=== PATIENT | male | born 1930 | race Caucasian/White ===

== ENCOUNTER 2020-03-07 13:29 | Inpatient (IN) | payer OTHER ==
[2020-03-07] VITALS (11 sets, daily range): BP systolic 90–146; BP diastolic 46–74
[~2020-03-07] VITALS: Ht 167.6 cm; Wt 82.6 kg
[~2020-03-07 13:29] MED LIST: ACETAMINOPHEN325 M1 PO; ACETAMINOPHEN650 M5 PO; ADULT LOW DOSE81 MG PO; ALDACTONE25 MG PO; ASA81BEC PO; ASPIRIN EC81 M1 PO; ASPIRIN81 M2 PO; AUGMENTIN 875875 MG PO; BISAC-EVAC10 MG RECTAL; CENTRUM TABLET1 TAB PO; COLACE100 MG PO; CRESTOR10 MG PO; DELSYM COU30 MG/5 M1 PO; DELTASONE20 MG PO; DUONEB 2.5-0.5 M3 ML INH; ENOXAPARIN40 MG/0.1 SUBQ; EQL FISH OIL 11 EAC1 PO; FISH OIL 1,0001 EAC5 PO; FISH OIL 1,001000 M1 PO; FLOMAX0.4 MG PO; FOLIC ACID 1 MG1 MG PO; FOLIC ACID1 MG PO; GLUCOSAMINE S1000 M2 PO; GUAIFENESIN-CODE5 ML PO; HYDROCODON-ACE1 EAC7 PO; HYDROCODONE-AP1 EAC6 PO; KEFLEX500 MG PO; LEVAQUIN 500 M500 M2 PO; LOPERAMIDE 2 MG2 M1 PO; LOPRESSOR 50 MG50 M1 PO; METHOTREXATE 22.5 M1 PO; METHOTREXATE 22.5 MG PO; MINOCYCLINE 5050 M1 PO; MOBIC15 MG PO; MOM PO; MUCINEX DM ER1 EAC1 PO; MULTIVITAMINS PO; NORCO 5-325 TA1 EACH PO; OMEGA-31000 MG PO; PANTOPRAZOLE SO40 M1 PO; PANTOPRAZOLE SO40 MG; PANTOPRAZOLE SO40 MG PO; PERCOCET 5-3251 EACH PO; PLAVIX 75 MG TA75 MG PO; PREDNISONE 1 MG1 M1 PO; PREDNISONE PO; PROTONIX40 M2 PO; SOLU-MEDRO125 MG/24 IV PUSH; TAMSULOSIN HCL0.4 M1 PO; TAMSULOSIN HCL0.4 MG PO; TESSALON PERLE100 MG PO; TOPROL XL25 MG PO; TOPROL XL50 MG PO; VENTOLIN HFA 1818 GM INH; VITAMIN D-32000 UNIT PO; VITAMIN D1000 UNI1 PO; VITAMIN D31000 UNI2 PO; ZESTRIL10 MG PO; ZOSYN 3/0.373.375 G3 IV
[2020-03-07 14:24] LABS: ABSOLUTE NEUTROPHILS 5.5 thou/uL (1.4-8.2); BASOPHILS 0.1 % (0.0-2.0); EOSINOPHILS 0.3 % (0.0-3.0); HEMATOCRIT 39.1 % (42.0-52.0); LYMPHOCYTES 5.5 % (24.0-44.0); MCHC 33.2 g/dL (28.0-37.0); MCV 96.4 fL (80.0-100.0); MONOCYTES 4.1 % (1.0-8.0); PLATELET COUNT 187 thou/uL (150-400); RBC 4.05 mil/uL (4.50-6.00); RDW 17.5 % (10.5-14.5); WBC 6.1 thou/uL (4.0-11.0)
[2020-03-07 14:37] LABS: ANION GAP 9 mmol/L (7-16); BUN 18 mg/dL (7-18); CALCIUM 8.1 mg/dL (8.5-10.1); CHLORIDE 101 mmol/L (98-107); CO2 23 mmol/L (21-32); CREATININE 1.1 mg/dL (0.7-1.3); GLUCOSE 96 mg/dL (74-106); POTASSIUM 4.1 mmol/L (3.5-5.1); SODIUM 133 mmol/L (136-145)
[2020-03-07 14:46] LABS: ALBUMIN 2.5 g/dL (3.4-5.0); MAGNESIUM 1.7 mg/dL (1.8-2.4); SGOT 46 U/L (15-37); SGPT 30 U/L (30-65); TOTAL BILIRUBIN 1.4 mg/dL (0.2-1.0); TOTAL PROTEIN 5.9 g/dL (6.4-8.2); TROPONIN-I <0.06 ng/mL (<0.06)
[2020-03-07 14:51] LABS: BE(vivo) -4.1 mmol/L (-2 to +3); HCO3 18.3 mmol/L (22.0-26.0); PCO2 26.7 mmHg (35.0-45.0); PO2 72.4 mmHg (80.0-100.0); pH 7.454 (7.360-7.450); sO2 95.5 % (92.0-98.0)
[2020-03-07 15:09] LABS: APTT 25.5 Seconds (24.5-32.8); INR 1.2; PROTIME 12.4 Seconds (9.3-11.4)
[2020-03-07] MEDS ORDERED: PROAIR HFA8.5 GM INH (16:13)
[2020-03-07] MEDS ORDERED: FISH OIL 1,0001 EAC9 PO (16:15)
[2020-03-07] MEDS ORDERED: VITAMIN B-125000 MCG SUBLING (16:15)
[2020-03-07] MEDS ORDERED: PREDNISONE 5 MG5 M1 PO (16:16)
[2020-03-07] MEDS ORDERED: VITAMIN D3125 MC1 PO (16:16)
[2020-03-07] MEDS ORDERED: TOPROL XL25 MG PO (16:18)
[2020-03-07] MEDS ORDERED: CRESTOR20 MG PO (16:18)
[2020-03-07] MEDS ORDERED: FOLIC ACID1 MG PO (16:18)
[2020-03-07] MEDS ORDERED: MIRTAZAPINE7.5 MG PO (16:19)
[2020-03-07] MEDS ORDERED: ASA81BEC PO (16:19)
[2020-03-07] MEDS ORDERED: METHOTREXATE 22.5 M1 PO (16:20)
--- NOTE | 2020-03-07 17:58 | EKG ---
[facility] [place] [address] ELECTROCARDIOGRAM REPORT Name: CARO CHAHAL Room #: 238-P ADM IN M.R.#: [id number] Admission: 03/07/20 Attend Phys: Donnie Weston Discharge: Date of : [birth year] Report #: [id number] THIS REPORT FOR: cc: Margret Salazar MD,Margret Clement,Lance Araujo MD [facility] ~ THIS REPORT FOR: //name// [facility] ED Test Date: 2020-03-07 Test Time: 15:53:33 Pat Name: CARO CHAHAL Department: Room: 238 Gender: M Electronics Design Engineer: NO : 1930 Requested By: Kevin Buchanan Order Number: [id number] MD: Lance Clement Measurements Intervals [place] Rate: 111 P: 6 ND: 166 QRS: -59 QRSD: 119 T: 84 QT: 347 QTc: 472 Interpretive Statements Sinus tachycardia Right bundle branch block Anteroseptal infarct, age indeterminate Left anterior hemiblock Compared to ECG 10/10/2015 21:55:01 No significant change was found Electronically Signed On 03-07-2020 17:57:59 RN QUALITY by Lance Clement [email or web address] <ELECTRONICALLY SIGNED> By: Lance Clement MD, FACC 03/07/20 1757 1553 1553 Lance Clement MD, FAC /EPI
[2020-03-07 18:02] LABS: URINE BILIRUBIN NEGATIVE (Negative); URINE BLOOD TRACE (Negative); URINE CLARITY CLEAR; URINE COLOR YELLOW; URINE GLUCOSE-RANDOM* NEGATIVE (Negative); URINE KETONES NEGATIVE (Negative); URINE LEUKOCYTES-REFLEX NEGATIVE (Negative); URINE NITRITE-REFLEX NEGATIVE (Negative); URINE PROTEIN (DIPSTICK) NEGATIVE (Negative); URINE SPECIFIC GRAVITY <= 1.005 (1.005-1.035); URINE UROBILINOGEN 0.2 E.U./dl (0.2-1.0)
--- NOTE | 2020-03-07 18:32 | NUR ---
PATIENT ADMITTED TO ICU FROM E.D AT 1730, ON BIPAP, CONFUSED AND RESTLESS, IMPULSIVE AND TRIES TO TAKE OFF BIPAP. VITALS STABLE AND DENIES PAIN. REFUSES TO ANSWER SOME OF THE ADMISSION HISTORY QNS. ADMISSION ASSESSMENT DOCUMENTED.
--- NOTE | 2020-03-07 19:12 | NUR ---
PATIENT'S SON CALLED NURSE AND STATED THAT PATIENT'S OTHER SON LIVES WITH HIM AND HAD TESTED POSITIVE FOR COVID 19 2WKS AGO. STATED PATIENT IS [facility] ALSO. UPDATED ON PATIENT'S STATUS.
--- NOTE | 2020-03-07 20:21 | NUR ---
PT'S SON NANO (DPOA) CALLED FOR AN UPDATE. HE STATED THAT PT IS VERY HARD OF HEARING AND DOES NOT HAVE HIS HEARING AIDS AT THE MOMENT. UPDATE WAS GIVEN, COVID RESULT CAME BACK POSITIVE, NANO STATED PT WAS EXPOSED TO COVID 19 2 WEEKS AGO BUT HAD BEEN DOING OK SINCE THEN UNTIL TODAY.
--- NOTE | 2020-03-07 20:35 | NUR ---
PT'S COVID RESULT IS POSITIVE. CALLED DR BORDEN ON [phone] LEFT A MESSAGE.
--- NOTE | 2020-03-07 21:57 | NUR ---
DR BORDEN HERE TO SEE PT, SAID HE ENTER POM ORDERS.
[2020-03-08] VITALS (30 sets, daily range): BP systolic 94–127; BP diastolic 46–79
[2020-03-08 03:20] LABS: ABSOLUTE NEUTROPHILS 3.7 thou/uL (1.4-8.2); BASOPHILS 0.1 % (0.0-2.0); HEMATOCRIT 37.5 % (42.0-52.0); HEMOGLOBIN 12.3 gm/dL (14.0-18.0); LYMPHOCYTES 7.5 % (24.0-44.0); MCH 31.6 pg (26.0-34.0); MCHC 32.8 g/dL (28.0-37.0); MCV 96.4 fL (80.0-100.0); MONOCYTES 3.8 % (1.0-8.0); PLATELET COUNT 161 thou/uL (150-400); POLYS 88.6 % (36.0-66.0); RBC 3.88 mil/uL (4.50-6.00); WBC 4.1 thou/uL (4.0-11.0)
[2020-03-08 03:41] LABS: ALBUMIN 2.1 g/dL (3.4-5.0); CALCIUM 7.8 mg/dL (8.5-10.1); POTASSIUM 3.6 mmol/L (3.5-5.1); TOTAL BILIRUBIN 0.8 mg/dL (0.2-1.0)
[2020-03-08 07:30] LABS: FIBRINOGEN 414.1 mg/dL (210-360); INR 1.3; PROTIME 13.3 Seconds (9.3-11.4)
[2020-03-08 09:23] LABS: BE(vivo) 0 mmol/L (-2 to +3); HCO3 23.9 mmol/L (22.0-26.0); PCO2 36.5 mmHg (35.0-45.0); PO2 64.8 mmHg (80.0-100.0); pH 7.434 (7.360-7.450); sO2 93.4 % (92.0-98.0)
--- NOTE | 2020-03-08 14:13 | NUR ---
chart review. cm unable to visit with johnna rt resting, covid + and conserving on ppe. cm visited with son russell via phone call. education on transition of care and dcp. son reported lives with his dad. in house, have ramp and stair lifts inside the home. he has fww, 4ww that is not in good condition, wheel chair, shower chair, grab bars in bathroom. takes breathing tx at home. no home o2. he was able to dress, shower, and do own adl's. no longer drives. son manages his medication, cooks and does laundry in the basement. been to skilled rehab in past and had [facility] in past per son russell. will cont following as needed for dc needs.
--- NOTE | 2020-03-08 18:26 | NUR ---
SPOKE WITH BOTH FAMILY REPRESENTITIVES NANO AND POLLY ABOUT PATIENT STATUS. PATIENT ON 3LNC DURING THE DAY. CONTINUES NPO. AWAITING SPEECH EVALUATION FOR THE AM. CONVULUSCENT PLASMA AND REMDESIVIR GIVEN. PATIENT IMPROVING IN MENTATION STATUS. PIVS. ROQUE WITH ADEQUATE URINE OUTPUT. LASIX GIVEN.
--- NOTE | 2020-03-08 22:40 | NUR ---
>>1920 Bedside shift report received, care assumed. Pt is alert with confusion, denies pain. will continue to monitor. >>>2029 Assessments done as documented, pt is alert with confusion. Able to follow commands. Continues on at 3l NC. tolerating, 02 sats at 97%. Pt is [place], white board used for communication. >>>2039 pt exhibiting sinus bradycardia with HR on the 30s-40s occassionally. Tomi Dukes NP notified. order for an EK and consult with cardiology given. >>>2139 Cardiology consulted, call made to oncall service, left message for a call back.
[2020-03-09] VITALS (14 sets, daily range): BP systolic 98–135; BP diastolic 48–83
[2020-03-09 05:06] LABS: ALBUMIN 2.2 g/dL (3.4-5.0); MAGNESIUM 2.2 mg/dL (1.8-2.4); POTASSIUM 3.4 mmol/L (3.5-5.1); TOTAL BILIRUBIN 0.9 mg/dL (0.2-1.0); TOTAL PROTEIN 5.6 g/dL (6.4-8.2)
--- NOTE | 2020-03-09 07:23 | EKG ---
[facility] [place] [address] ELECTROCARDIOGRAM REPORT Name: CARO CHAHAL Room #: 238-P ADM IN M.R.#: [id number] Admission: 03/07/20 Attend Phys: Donnie Weston Discharge: Date of : [birth year] Report #: [id number] THIS REPORT FOR: cc: Margret Salazar MD,Margret Clement,Lance Araujo MD [facility] ~ THIS REPORT FOR: //name// [facility] Test Date: 2020-03-08 Test Time: 21:26:51 Pat Name: CARO CHAHAL Department: Room: 238 P Gender: M Manager Material: KUNAL Peoples RN : 1930 Requested By: Roseline Krishna Order Number: [id number] MD: Lance Clement Measurements Intervals [place] Rate: 40 P: 40 [place]: 169 QRS: -44 QRSD: 167 T: 27 QT: 573 QTc: 468 Interpretive Statements Sinus bradycardia Ventricular premature complex Nonspecific intraventricular conduction delay, leftward axis Nonspecific T wave abnormality Compared to ECG 03/07/2020 15:53:33 Ventricular premature complex(es) now present No significant change was found Electronically Signed On 03-09-2020 7:23:35 WEB SIZER by Lance Clement [email or web address] <ELECTRONICALLY SIGNED> By: Lance Clement MD, [facility] 03/09/20722 25 25 Lance Clement MD, [facility] /EPI
--- NOTE | 2020-03-09 07:59 | EKG ---
[facility] [place] [address] ELECTROCARDIOGRAM REPORT Name: CARO CHAHAL Room #: 238-P ADM IN M.R.#: [id number] Admission: 03/07/20 Attend Phys: Donnie Weston Discharge: Date of : [birth year] Report #: [id number] THIS REPORT FOR: cc: Margret Salazar MD,Bhavesh Brewer MD, MD [facility] ~ THIS REPORT FOR: //name// [facility] Test Date: 2020-03-08 Test Time: 21:26:12 Pat Name: CARO CHAHAL Department: Room: 238 P Gender: M Construction Driver: KUNAL Peoples RN : 1930 Requested By: Donnie Weston Order Number: [id number] MD: Bhavesh Garcia Measurements Intervals [place] Rate: 46 P: 27 [place]: 174 QRS: -42 QRSD: 164 T: 50 QT: 525 QTc: 460 Interpretive Statements Sinus bradycardia RBBB and LAFB Probable left ventricular hypertrophy Compared to ECG 03/07/2020 15:53:33 Sinus tachycardia no longer present Myocardial infarct finding no longer present Electronically Signed On 03-09-2020 7:58:49 STAFF CYTOTECHNOLOGIST by Bhavesh Garcia [email or web address] <ELECTRONICALLY SIGNED> By: Bhavesh Garcia MD, FACC 03/09/20 0758 25 25 Bhavesh Garcia MD, FAC /EPI
--- NOTE | 2020-03-09 07:59 | EKG ---
[facility] [place] [address] ELECTROCARDIOGRAM REPORT Name: CARO CHAHAL Room #: 238-P ADM IN M.R.#: [id number] Admission: 03/07/20 Attend Phys: Donnie Weston Discharge: Date of : [birth year] Report #: [id number] THIS REPORT FOR: cc: Margret Salazar MD,Bhavesh Brewer MD, MD [facility] ~ THIS REPORT FOR: //name// [facility] Test Date: 2020-03-08 Test Time: 21:31:10 Pat Name: CARO CHAHAL Department: Room: 238 P Gender: M Catalytic Case Operator: KUNAL Peoples RN : 1930 Requested By: Donnie Weston Order Number: [id number] MD: Bhavesh Garcia Measurements Intervals [place] Rate: 35 P: 4 [place]: 175 QRS: -43 QRSD: 164 T: 23 QT: 604 QTc: 461 Interpretive Statements Sinus bradycardia Ventricular premature complex LVH with secondary repolarization abnormality Compared to ECG 03/08/2020 21:26:51 Left ventricular hypertrophy now present Early repolarization now present Intraventricular conduction delay no longer present Left-axis deviation no longer present T-wave abnormality no longer present Electronically Signed On 03-09-2020 7:59:31 KNIT TUBING DYER by Bhavesh Garcia [email or web address] <ELECTRONICALLY SIGNED> By: Bhavesh Garcia MD, [facility] 03/09/20 0759 30 30 Bhavesh Garcia MD, [facility] /EPI
--- NOTE | 2020-03-09 08:00 | NUR ---
ASSUMMED CARE FROM NIGHT NURSEKUNAL AT 0700. POTASSIUM INFUSING FOR SERUM POTASSIUM OF 3.4. DESATS WHEN WITH MINIMAL EXERTION.
--- NOTE | 2020-03-09 10:39 | NUR ---
SPOKE WITH SON NANO, UPDATED HIM AND REASSURANCE GIVEN
--- NOTE | 2020-03-09 14:00 | NUR ---
chart review. pt possible will be transferred out of icu. on iv abx. use of bipap and nc oxygen. should have pt ot eval for weakness. lives at home with son. noted in chart had [facility] if needs home health. if needs home health fax referral to [phone]. will cont following as needed for dc needs.
--- NOTE | 2020-03-09 14:11 | NUR ---
POTASSIUM OF 3.2 NOTED AND POTASSIUM GIVEN PER PROTOCOL. HEART RATE TO 36 BRIEFLY. BP 119/60.
--- NOTE | 2020-03-09 19:00 | NUR ---
PATIENT PROGRESSING TOWARDS OUTCOME GOALS SLOWLY. FORGETFUL AT TIMES. TOLERATING DIET AND TAKING PO PILLS WITH APPLESAUCE. O2 AT 5L/NC AND SATING IN THE MID 90'S WITH RESP RATE IN THE UPPER TEENS. SEURM POTASSIUM WITHIN PARAMATERS. URINE OUTPUT GREATER THAN 30 ML/HR. WILL CONTINUE TO MONITOR, SPOKE WITH HIS SON NANO AT 1430 AND UPDATED HIM.
--- NOTE | 2020-03-09 19:47 | NUR ---
ATTEMPTED TO RETURN CALL FROM POLLY, NO ANSWER.
[2020-03-10 03:27] VITALS: BP 119/63
--- NOTE | 2020-03-10 03:35 | NUR ---
PT UPSET HE IS ON THICKENED LIQUIDS AND CANT HAVE ICE. 2 COLD THICKENED DRINKS PROVIDED. VSS. ASSESSMENT UNCHANGED.
[2020-03-10 05:32] LABS: ALBUMIN 2.1 g/dL (3.4-5.0); CREATININE 0.9 mg/dL (0.7-1.3); DIRECT BILIRUBIN 0.3 mg/dL (<0.1-0.2); TOTAL BILIRUBIN 0.8 mg/dL (0.2-1.0); TOTAL PROTEIN 5.2 g/dL (6.4-8.2)
[2020-03-10 05:34] LABS: CALCIUM 7.6 mg/dL (8.5-10.1); POTASSIUM 3.8 mmol/L (3.5-5.1)
--- NOTE | 2020-03-10 07:44 | NUR ---
PT ATTEMPTED TO SIT UP AT BS THIS AM. SATS DOWN TO 85%. REPLACED O2 CORRECTLY IN NOSE AND PUT PT BACK TO BED. O2SAT BACK UP TO 100% ON 4LNC. INSTRUCTED PT TO NOT GET OOB WITHOUT HELP.
[2020-03-10 07:58] VITALS: BP 105/42
[2020-03-10 11:46] VITALS: BP 140/73
[2020-03-10 15:42] VITALS: BP 133/64
--- NOTE | 2020-03-10 19:21 | NUR ---
PATIENT APPEARS INCREASINGLY CONFUSED THE DAY HAS DRAGGED ON. HE KEEPS ON YELLING HE HAS TO MAKE A CALL BUT WHEN PRESSED ON WHO HE HAS TO CALL HE STATES NO BODY. HAS HAD 3 SMALL BOWEL MOVEMENT TODAY.
[2020-03-10 19:42] VITALS: BP 121/84
[2020-03-11 03:40] VITALS: BP 118/74
--- NOTE | 2020-03-11 04:31 | NUR ---
PT TRANSFERRING TO BEDSIDE COMMODE WITH ASSIST AND IS TOLERATING FAIR. DENIES PAIN. RESTING COMFORTABLY. NO NEEDS VOICED. CALL LIGHT WITHIN REACH. FREQUENT OBSERVATION.
[2020-03-11 05:00] LABS: ALBUMIN 2.3 g/dL (3.4-5.0); DIRECT BILIRUBIN 0.3 mg/dL (<0.1-0.2); TOTAL PROTEIN 5.9 g/dL (6.4-8.2)
[2020-03-11 07:15] VITALS: BP 128/78
[2020-03-11 11:03] VITALS: BP 110/74
[2020-03-11 15:00] VITALS: BP 122/64
--- NOTE | 2020-03-11 19:11 | NUR ---
PATIENT HAS RESTED IN BED THROUGH THE DAY. HAS NOT BEENO TO BE CONFUSED AT THIS TIME. RESPIRATIONS ARE EVEN AN NON LABORED. CONT ON OXYGEN VIA NASAL CANUNLA. WILL CONT WITH PLAN CARE.
[2020-03-11 20:00] VITALS: BP 155/59
[2020-03-12 05:23] VITALS: BP 116/63
--- NOTE | 2020-03-12 05:30 | NUR ---
ASSUMED CARE OF PT AT 1900. PT AOX1-2 AND NEEDS MUST BE ANTICIPATED. FALL PRECAUTION IN PLACE. PT IS EXTREMELY INAJA. PT DENIED PAIN, NAUSEA OR SOA. OT IS ON 2L O2 VIA NC. PT REMOVES O2 FROM NARES FREQUENTLY. PT RAN SA/BBB ON TELE. PT WAS ABLE TO GET COMFORTABLE AND SLEEP PART OF THE SHIFT. VSS AND NO S/S OF ACUTE DISTRESS. WILL CONTINUE TO MONITOR.
[2020-03-12 07:00] LABS: ALBUMIN 2.2 g/dL (3.4-5.0); DIRECT BILIRUBIN 0.5 mg/dL (<0.1-0.2); TOTAL BILIRUBIN 1.1 mg/dL (0.2-1.0); TOTAL PROTEIN 5.6 g/dL (6.4-8.2)
[2020-03-12 11:55] VITALS: BP 115/76
[2020-03-12 15:45] VITALS: BP 110/67
[2020-03-12 15:55] VITALS: BP 110/67
--- NOTE | 2020-03-12 16:06 | NUR ---
SW reviewed chart and spoke with nursing and attending physician. Pt was transferred to from ICU. Pt remains in Enhanced Isolation due to COVID-19. Pt is afebrile and on 2L of O2. Pt is on IV abx and IV steroids. Pt is completing course of Remdesivir. Neuro consulted due to encephalopathy. VARUN spoke with pt's son, Kevin, via phone to provide update and contact info for SW. Therapy is working with pt to assist with recommendation for discharge needs. Pt has been to [facility] in the past. No hx of SNF placement. Pt has used [facility]. Pt's family is hoping that pt will be able to d/c home with HH when medically stable. Pt's son to bring personal belongings later today. VARUN is following to assist as needed with discharge planning.
--- NOTE | 2020-03-12 18:16 | NUR ---
PT CARE ASSUMED AT 0700. ASSESSMENTS CHARTED. MEDICATION CHARTED. AFSANEH ROQUE. PT TAKES HIS MEDICATIONS CRUSHED IN APPLESAUCE. PT TAKEN TO CT SCAN; MUST NEEDS A CART TO TRANSFER; PT IS NOT SBA; ASSIST X 1-2 NEEDED. PT REGULARLY TAKES OFF NC; SATURATION IS ~95% UNLESS PT MOVES; THEN DESATS. PT BEGAN DAY ALERT BUT BECAME GRADUALLY MORE CONFUSED DAY PROGRESSED.
[2020-03-12 19:50] VITALS: BP 134/73
[2020-03-13 04:15] VITALS: BP 132/66
--- NOTE | 2020-03-13 05:26 | NUR ---
ASSESSED AT START OF SHIFT 1900. PT AWAKE AND ALERT. [place] AND CONFUSED. EVENING MEDS GIVEN CRUSHED IN THICK LIQUID. FOLLEY INTACT. PT PULLS OFF O2 SATS 91-93% ON RA. FOLLEY INTACT. FALL PREC IN PLACE AND CALL LIGHT IN REACH WILL CONT TO SAMANTHA.
[2020-03-13 07:17] VITALS: BP 146/107
--- NOTE | 2020-03-13 08:58 | NUR ---
OXYGEN swing from 89 to 92 on room air, back and forth. HR irregular, from 35 to 40s.
[2020-03-13 10:48] VITALS: BP 114/60
[2020-03-13 15:08] VITALS: BP 117/63
--- NOTE | 2020-03-13 18:55 | NUR ---
The staff reported to Dr. Diallo about patient's irregular heat beat and lowest HR was 30 at 4:35 am on 03/12, 33 at 0506 am on 03/13. According the PT, patient HR ran up and down during activity and needs 9L during activity. Patient has been on RA during bed rest, O2 Sat stays 89 to 91 and 92.
[2020-03-13 19:09] VITALS: BP 106/60
[2020-03-14 04:12] VITALS: BP 135/77
[2020-03-14 07:50] VITALS: BP 134/77
[2020-03-14] MEDS ORDERED: IPRAT-ALBUT 0.5-3 ML INH (12:22)
[2020-03-14] MEDS ORDERED: PREDNISONE 20 M20 MG PO (12:22)
[2020-03-14] MEDS ORDERED: CEFDINIR300 MG PO (12:22)
[2020-03-14 13:46] VITALS: BP 134/77
--- NOTE | 2020-03-14 14:02 | NUR ---
DISCHARGE NOTE: VARUN reviewed chart and spoke with nursing and attending physician. Pt remains in Enhanced Isolation due to COVID-19. Pt is medically stable for discharge home today with HH services and home O2. Rest/exercise oximetry ordered and is pending. VARUN spoke with pt's son, Kevin, via phone to discuss discharge plan. Pt's son is adamant about pt returning home, so pt can be with family. Pt's son declines referral to post-acute care. Pt's son states that pt does not ambulate much in the home and he has 24 hour care with family. SW explained likely need for home O2. Pt's son verbalized understanding. Options provided for DME and HH companies. Pt has used [facility] and would like to use them again. No preference voiced for DME. VARUN faxed referral and discharge orders/summary to [facility] for review. Notified intake of new referral. VARUN faxed face sheet and clinical info to [facility] for review. Notified [facility] liaison of new referral. Contact info for and [facility] placed in pt's discharge summary. Will need script for home O2. Pt's son, Kevin, will provide transportation home when ready. VARUN is following to finalize discharge.
--- NOTE | 2020-03-14 16:32 | NUR ---
assumed care of pt at 0700. pt aox2 very hard of hearing. in no acute distress. requiring 4L NC with activity per oximetry study. up w/ mod assist and walker. fatigues easily. anticipateing d/c later today. son notified with plan of care. discharge education relayed to patient's son. keven.
== END 2020-03-14 18:28 | disposition home health service (06) | DRG 871 ==
LOC: ER 13:29 → ICU 15:15 → EROBS 15:15 → ICU 17:50 → 3W 03-09 21:59
PROVIDERS: Emergency Medicine; Pediatrics; Specialist; Student in an Organized Health Care Education/Training Program; ADMIT Hospitalist; ATTEND Hospitalist
DX: A41.9 Sepsis, unspecified organism (principal); U07.1 COVID-19; J96.01 Acute respiratory failure with hypoxia; J12.9 Viral pneumonia, unspecified; I50.33 Acute on chronic diastolic (congestive) heart failure; J44.1 Chronic obstructive pulmonary disease with (acute) exacerbation; E46 Unspecified protein-calorie malnutrition; N39.0 Urinary tract infection, site not specified; D68.9 Coagulation defect, unspecified; J44.0 Chronic obstructive pulmonary disease with (acute) lower respiratory infection; K21.9 Gastro-esophageal reflux disease without esophagitis; E78.5 Hyperlipidemia, unspecified; I25.10 Atherosclerotic heart disease of native coronary artery without angina pectoris; M06.9 Rheumatoid arthritis, unspecified; E66.9 Obesity, unspecified; N40.1 Benign prostatic hyperplasia with lower urinary tract symptoms; I11.0 Hypertensive heart disease with heart failure; D64.9 Anemia, unspecified; G89.29 Other chronic pain; E78.00 Pure hypercholesterolemia, unspecified; E87.6 Hypokalemia; B95.8 Unspecified staphylococcus as the cause of diseases classified elsewhere; Z88.6 Allergy status to analgesic agent; R45.0 Nervousness; Z95.5 Presence of coronary angioplasty implant and graft; Z90.49 Acquired absence of other specified parts of digestive tract; Z68.29 Body mass index [BMI] 29.0-29.9, adult; Z79.82 Long term (current) use of aspirin; Z79.899 Other long term (current) drug therapy
CPT/HCPCS: 10078; 10779; 10879; 85076

== ENCOUNTER 2020-03-20 11:58 | Inpatient (IN) | payer OTHER ==
[~2020-03-20] VITALS: Ht 167.6 cm; Wt 109.4 kg
--- NOTE | ~2020-03-20 | HC ---
[facility] [place] [address] CONSULTATION Name: SYLVIA CHAHAL Room #: 242-P ADM IN M.R.#: [id number] Admission: 03/20/20 Attend Phys: Donnie Weston Discharge: Date of : [birth year] Report #: [id number] THIS REPORT FOR: cc: Margret Salazar MD, Paula V. MD Al-Fariha,Aminata Mclain MD ~ REASON FOR CONSULTATION: Acute kidney injury. REASON FOR PRESENTATION: The patient was admitted on 03/20/2020 with shortness of breath. HISTORY OF PRESENT ILLNESS: Obtained from the medical chart. Apparently, the patient was admitted for about 14 days with COVID-19 prior to his recent admission. He was discharged home; however, he continued to deteriorate with his O2 sat down to 82 per the family members. He was brought for further evaluation and management. He is known to have rheumatoid arthritis and is maintained on methotrexate. He is also known to have multiple other comorbid conditions including and not limited to hypertension, coronary artery disease. The patient had required an intubation and was in the ICU for an extended period of time. The patient's creatinine values initially were within normal range. However, in the last few days, the patient's creatinine had been rising significantly with significant hyperkalemia. The patient has remained on high oxygen, FiO2 at 100%. He also developed pneumothorax. I was consulted to manage his acute kidney injury and hyperkalemia. PAST MEDICAL HISTORY: 1. Obtained from the medical chart. 2. Recent COVID-19. 3. Respiratory failure. 4. Right knee surgery. 5. Hypertension. 6. Cardiac stents. 7. Coronary artery disease. 8. Rheumatoid arthritis, maintained on immunosuppressive medications. MEDICATIONS: 1. Crestor. 2. Methotrexate. 3. Folic acid. 4. Aspirin. 5. Pantoprazole. ALLERGIES: Oxycodone per medical chart. FAMILY HISTORY: Unobtainable given the patient's current mental status. [facility] [address] [place] [address] CONSULTATION Name: SYLVIA CHAHAL Room #: 242-P [facility] IN M.R.#: [id number] Admission: 03/20/20 Attend Phys: Donnie Weston Discharge: Date of : [birth year] Report #: [id number] SOCIAL HISTORY: Unobtainable given the patient's current mental status. REVIEW OF SYSTEMS: Unobtainable given the patient's current mental status. PHYSICAL EXAMINATION: VITAL SIGNS: Pulse rate is 96, respiratory rate is 24, blood pressure is 127/49. The patient is intubated, requiring very high oxygen at 100%. HEAD AND NECK: ET tube in place. CHEST: Thoracotomy tube in place. Bilateral crackles. CARDIOVASCULAR: No rub. ABDOMEN: Soft. LOWER EXTREMITIES: +1 edema. LABORATORY DATA: From today revealed a white blood cell count of 14.1, hemoglobin of 9.2, platelet of 20,000. Sodium is 138, potassium 6.3, BUN is 94, creatinine 2.2. IMPRESSION AND PLAN: 1. Acute kidney injury. 2. Hyperkalemia. 3. Respiratory failure. 4. COVID-19. 5. Pneumothorax. This is a very grim and grave situation. I had a lengthy discussion with the patient's son, Kevin, yesterday. I thoroughly explained for him that this is a nonsurvivable situation. He agrees with the current which is to continue with the medical conservative therapy for his hyperkalemia. I will treat his hyperkalemia today. We will continue with the current approach of trying to control his hyperkalemia medically; however, this is not going to help his overall condition and discussion should be geared toward palliative, comfort, withdrawal of care. By: 0904 2321 Aminata Piña MD /nt
[~2020-03-20 11:58] MED LIST changes: +CEFDINIR300 MG PO; +CRESTOR20 MG PO; +FISH OIL 1,0001 EAC9 PO; +IPRAT-ALBUT 0.5-3 ML INH; +MIRTAZAPINE7.5 MG PO; +PREDNISONE 20 M20 MG PO; +PREDNISONE 5 MG5 M1 PO; +PROAIR HFA8.5 GM INH; +VITAMIN B-125000 MCG SUBLING; +VITAMIN D3125 MC1 PO
[2020-03-20 12:39] LABS: ABSOLUTE NEUTROPHILS 14.2 thou/uL (1.4-8.2); BASOPHILS 0.3 % (0.0-2.0); EOSINOPHILS 0.7 % (0.0-3.0); HEMATOCRIT 42.9 % (42.0-52.0); HEMOGLOBIN 14.1 gm/dL (14.0-18.0); MCH 32.3 pg (26.0-34.0); MCHC 32.9 g/dL (28.0-37.0); MCV 98.3 fL (80.0-100.0); MONOCYTES 1.9 % (1.0-8.0); PLATELET COUNT 171 thou/uL (150-400); POLYS 96.1 % (36.0-66.0); RBC 4.37 mil/uL (4.50-6.00); RDW 19.3 % (10.5-14.5); WBC 14.8 thou/uL (4.0-11.0)
[2020-03-20 13:02] LABS: ANION GAP 7 mmol/L (7-16); BUN 19 mg/dL (7-18); CALCIUM 8.9 mg/dL (8.5-10.1); CHLORIDE 99 mmol/L (98-107); CO2 25 mmol/L (21-32); CREATININE 1.3 mg/dL (0.7-1.3); GLUCOSE 98 mg/dL (74-106); POTASSIUM 4.6 mmol/L (3.5-5.1); SODIUM 131 mmol/L (136-145)
[2020-03-20 13:03] LABS: BE(vivo) -4.1 mmol/L (-2 to +3); HCO3 17.9 mmol/L (22.0-26.0); PO2 175.6 mmHg (80.0-100.0); pH 7.475 (7.360-7.450); sO2 99.3 % (92.0-98.0)
[2020-03-20 13:04] LABS: PCO2 24.9 mmHg (35.0-45.0)
[2020-03-20 13:08] LABS: APTT 25.2 Seconds (24.5-32.8); INR 1.2; PROTIME 12.3 Seconds (9.3-11.4)
[2020-03-20 13:12] LABS: ALBUMIN 2.5 g/dL (3.4-5.0); MAGNESIUM 1.9 mg/dL (1.8-2.4); SGOT 37 U/L (15-37); SGPT 30 U/L (30-65); TOTAL BILIRUBIN 2.9 mg/dL (0.2-1.0); TOTAL PROTEIN 6.4 g/dL (6.4-8.2); TROPONIN-I <0.06 ng/mL (<0.06)
[2020-03-20 13:13] LABS: LARGE PLATELETS OCCASIONAL; PLATELET ESTIMATE NORMAL
[2020-03-20 13:14] LABS: ANISOCYTOSIS 2+; MACROCYTES FEW; MICROCYTES 1+; OVALOCYTES OCCASIONAL; POIKILOCYTOSIS SLIGHT
--- NOTE | 2020-03-20 15:53 | EKG ---
[facility] [place] [address] ELECTROCARDIOGRAM REPORT Name: SYLVIA CHAHAL Room #: REG M.R.#: [id number] Admission: 03/20/20 Attend Phys: Discharge: Date of : [birth year] Report #: [id number] THIS REPORT FOR: cc: Martin,Margret Salazar,Margret Garcia,Bhavesh ZARATE [facility] ~ THIS REPORT FOR: //name// [facility] ED Test Date: 2020-03-20 Test Time: 12:09:04 Pat Name: SYLVIA CHAHAL Department: Room: Gender: Cigarette Examiner: [facility] : 1930 Requested By: Kevin Buchanan Order Number: [id number] MD: Bhavesh Garcia Measurements Intervals [place] Rate: 134 P: 5 [place]: 137 QRS: -70 QRSD: 112 T: 111 QT: 316 QTc: 472 Interpretive Statements Sinus tachycardia Ventricular premature complex Left atrial enlargement Incomplete right bundle branch block LVH with secondary repolarization abnormality Anterior Q waves, possibly due to LVH Baseline wander in lead(s) I,III,aVL,V1 Compared to ECG 03/08/2020 21:31:10 Atrial abnormality now present Incomplete right bundle-branch block now present Electronically Signed On 03-20-2020 15:53:15 RACK MAKER by Bhavesh Garcia [email or web address] <ELECTRONICALLY SIGNED> By: Bhavesh Garcia MD, [facility] 03/20/20 1553 1209 1209 Bhavesh Garcia MD, FAC /EPI
--- NOTE | 2020-03-20 16:08 | NUR ---
VASCULAR ACCESS CALLED TO ER FOR PICC LACEMENT. PT IS UNCOPERATIVE AND VERY RESTLESS. PT'S HX,ORDER,CONSENT,LABS,MEDS REVIEWED. IJ NOT AN OPTION PT THRASHING IN BED. 2 RN ASSISTED HOLDING PT'S ARMS AND LEGS DURING INSERTION. MOY BASILIC WAS WIDELY PATENT WITH USG. 5FR TL POWER PICC TRIMMED TO 50CM INSERTED TO 0CM. STAT CXR ORDERED. PT MORE CALM AFTER PROCEDURE COMPLETE.
--- NOTE | 2020-03-20 16:36 | NUR ---
CXR CONFIRMED PICC LINE LOWER SVC, RELEASED FOR IMMEDIATE USE PER PROTOCOL TO [facility] BRO
--- NOTE | 2020-03-20 17:45 | NUR ---
SPOKE WITH PT SON NANO AND NIECE LUCY. DICUSSED PLAN OF CARE AND PT COURSE OF CARE IN ED. DISCUSSED NEED FOR QUARANTINE FOR FAMILY IN CONTACT WITH PT WELL.
[2020-03-21 05:38] LABS: MCH 32.5 pg (26.0-34.0); MCHC 32.3 g/dL (28.0-37.0); MCV 100.7 fL (80.0-100.0); RBC 3.68 mil/uL (4.50-6.00); WBC 10.7 thou/uL (4.0-11.0)
[2020-03-21 05:59] LABS: ALBUMIN 1.8 g/dL (3.4-5.0); CALCIUM 7.5 mg/dL (8.5-10.1); CREATININE 0.7 mg/dL (0.7-1.3); MAGNESIUM 2.2 mg/dL (1.8-2.4); PHOSPHORUS 3.6 mg/dL (2.5-4.9); POTASSIUM 4.7 mmol/L (3.5-5.1)
[2020-03-21 11:20] LABS: URINE BILIRUBIN NEGATIVE (Negative); URINE BLOOD 3+ (Negative); URINE CLARITY CLEAR; URINE COLOR YELLOW; URINE GLUCOSE-RANDOM* NEGATIVE (Negative); URINE KETONES NEGATIVE (Negative); URINE LEUKOCYTES NEGATIVE (Negative); URINE NITRITE NEGATIVE (Negative); URINE PROTEIN (DIPSTICK) 1+ (Negative); URINE SPECIFIC GRAVITY >= 1.030 (1.005-1.035); URINE UROBILINOGEN 0.2 E.U./dl (0.2-1.0)
[2020-03-21 11:35] LABS: CASTS None Seen /LPF (None Seen); MUCUS >6 Heavy strn/LPF (None Seen); SQUAMOUS 0-3 Few /LPF (0-3)
[2020-03-21 11:36] LABS: BACTERIA None Seen /HPF (None Seen); CRYSTALS None Seen /LPF (None Seen); URINE RBC >20 Many /HPF (0-2); URINE WBC 0-5 Rare /HPF (0-5)
[2020-03-21 15:30] VITALS: BP 120/64
[2020-03-21 15:50] VITALS: BP 132/62
--- NOTE | 2020-03-21 19:16 | NUR ---
ADMITTD [facility] AT THIS TIME. HE IS ALERT ORIENTED TO SELF. DENIES PAIN. HE HOWEVER KEPT ON ATTEMTPING TO REMOVE RESTRAINTS AND FIGHTS TO TAKE OFF IV ACCESS. EDUCATED AT THIS TIME AND HE DOES NOT SEEM TO UNDERSTAND NEED NOT TO REMOVE MEDICAL EQUIPMENT. CONT ON NON REBREATHER MASK.
[2020-03-21 19:46] VITALS: BP 125/60
--- NOTE | 2020-03-21 19:48 | NUR ---
1900 ASSUMED CARE OF PT AFTER REPORT. 1947 BASELINE ASSESSMENT COMPLETED, PT IN BED RESTRAINTS IN PLACED TO BILAT UE SOFT RESTRAINTS. PT AWAKE AND ALERT BUT CONFUSED, ROQUE IN PLACE AND DRAINING, FALL PRECAUTIONS IN PLACE
[2020-03-21 23:35] VITALS: BP 145/78
--- NOTE | 2020-03-22 03:02 | NUR ---
MARYSOL MADSEN NOTIFIED OF HR 120-130. PT AGITATED AND NPO, ORDERS RECEIVED, WILL CONTINUE TO MONITOR
[2020-03-22 03:06] VITALS: BP 127/74
[2020-03-22 05:34] LABS: ALBUMIN 1.8 g/dL (3.4-5.0); CALCIUM 7.8 mg/dL (8.5-10.1); CREATININE 0.8 mg/dL (0.7-1.3); MAGNESIUM 2.2 mg/dL (1.8-2.4); TOTAL BILIRUBIN 1.4 mg/dL (0.2-1.0)
[2020-03-22 05:44] LABS: ABSOLUTE NEUTROPHILS 15.4 thou/uL (1.4-8.2); BASOPHILS 0.2 % (0.0-2.0); HEMATOCRIT 34.3 % (42.0-52.0); HEMOGLOBIN 11.3 gm/dL (14.0-18.0); LYMPHOCYTES 0.7 % (24.0-44.0); MCH 32.7 pg (26.0-34.0); MCV 99.1 fL (80.0-100.0); MONOCYTES 3.5 % (1.0-8.0); PLATELET COUNT 120 thou/uL (150-400); POLYS 95.6 % (36.0-66.0); RBC 3.46 mil/uL (4.50-6.00); RDW 19.5 % (10.5-14.5); WBC 16.1 thou/uL (4.0-11.0)
[2020-03-22 06:06] LABS: POTASSIUM 3.6 mmol/L (3.5-5.1)
[2020-03-22 08:00] VITALS: BP 147/119
--- NOTE | 2020-03-22 13:08 | NUR ---
INITIAL ASSESSMENT: VARUN reviewed chart and spoke with nursing and attending physician. Pt was admitted from home due to pneumonia/respiratory failure. Pt placed in Enhanced Isolation due to COVID-19. Pt was discharged home on 03/14 with Kyle and O2 through [facility]. Pt is afebrile and currently on 15L of O2 via NRB mask. Pt is on IV abx. Pt placed in restraints due to pulling at lines. VARUN spoke with pt's son, Kevin, via phone. Introduced role of VARUN. Pt's son states pt was doing well at home until Thursday morning when he became short of breath and lethargic. He contacted the HH RN, who suggested pt be brought to the ER for evaluation. Pt's family has all had COVID. Pt requires assistance with ADLs. Pt has a cane and walker at home. 2 steps to enter the home and no steps inside. Pt has been to [address] [place] [address] in the past for inpt acute rehab. No hx of SNF placement. Pt's son states their plan is for pt to return home and resume services when discharged. conference planner sent updates to for review. Therapy will need to be ordered when pt is able to participate. VARUN is following to assist as needed with discharge planning.
--- NOTE | 2020-03-22 14:16 | NUR ---
PT ON SERVICE WITH [facility] FAXED CLINICAL UPDATE TO [facility] AND SPOKE WITH RICHI IN INTAKE SHE WILL FOLLOW.
[2020-03-22 15:30] VITALS: BP 117/69
--- NOTE | 2020-03-22 18:54 | NUR ---
CALLED ID LEFT MESSAGE THAT [facility]ANCO TROUGH IS 13 H ( 5- 10 ) AWAITING CALL BACK FROM DR BORDEN OR DR BURGOS ID MEDICINE.
--- NOTE | 2020-03-22 19:22 | NUR ---
SPOKE WITH DR BORDEN GAVE HIM TROUGH RESULT OF 13 H, HE SAID TO KEEP VANCO SAME DOSE AND INFUSE.
[2020-03-22 21:44] VITALS: BP 141/70
--- NOTE | 2020-03-23 03:46 | NUR ---
ASSESSMENT DOCUMENTED.PT BEEN AWAKE MOST OF THE NOC.PT IS ALERT TO SELF AND CONFUSED.VERY [place].FOLLOWS SIMPLE COMMANDS.PT YELLING "NANO" MOST OF THE NOC,ASKING HIM TO TAKE HIM HOME.PT REDIRECTED SEVERAL TIMES OF THE TIME,PLACE AND THE SITUATION.SUPERVISOR SLASHING DEPARTMENT WAS NOTIFIED OF THE PATIENT RESTLESSNESS,ORDERS GIVEN TO HAVE PT CALM DOWN W/O EFFECTIVENESS.PT DENIES PAIN.POC IS TO CONT WITH CURRENT TREATMENT.WILL CONT TO MONITOR PER POC.
[2020-03-23 04:00] VITALS: BP 154/75
[2020-03-23 05:00] VITALS: BP 154/75
[2020-03-23 07:22] VITALS: BP 150/95
--- NOTE | 2020-03-23 08:26 | HC ---
[facility] [place] [address] CONSULTATION Name: SYLVIA CHAHAL Room #: 352-P ADM IN M.R.#: [id number] Admission: 03/20/20 Attend Phys: Donnie Weston Discharge: Date of : [birth year] Report #: [id number] THIS REPORT FOR: cc: Margret Salazar MD,Ciro Clarke MD, MD ~ DATE OF SERVICE: 03/21/2020 INFECTIOUS DISEASE CONSULTATION HISTORY OF PRESENT ILLNESS: Chart reviewed, the patient examined. This is an 89-year-old known to myself in the service recently diagnosed with COVID-19 infection, spent roughly 2 weeks in the hospital. He was discharged to home after refusing to go to a facility on 03/14. He was still requiring supplemental oxygen at 2 liters at rest and 4 liters with activity. He was generally lucid; however, recent times he was found to have increasing encephalopathy and borderline hypoxemia with low saturations. Due to concern about his deteriorating status, he was brought to the Emergency Room and subsequently admitted. He was found to have extensive interstitial nodular opacities, slight improvement from previous. ABGs showed pO2 of 175 on FiO2 of 100%. Lactic acid was elevated at 2.8. Influenza antigen was negative. He has persistent positive coronavirus-19 PCR. Blood cultures collected at the time of admission are sterile thus far. Due to concerns about secondary bacterial pneumonitis, he was started on empiric therapy with vancomycin and cefepime. He is quite hard of hearing, difficult to communicate with him. He has been afebrile. ALLERGIES: LISTED OXYCODONE. CURRENT MEDICATIONS: Include metoclopramide, enoxaparin, vancomycin, tamsulosin, insulin lispro, hydrocortisone, cefepime, zolpidem, nitroglycerin, ondansetron. PAST MEDICAL HISTORY: Does have a history of coronary artery disease, rheumatoid arthritis, hypertension, reflux, diagnosed with COVID-19 infection ____ of 02/2020. SOCIAL HISTORY: Available in the chart. FAMILY HISTORY: Available in the chart. REVIEW OF SYSTEMS: Not reliably obtained. PHYSICAL EXAMINATION: [facility] [address] [place] [address] CONSULTATION Name: SYLVIA CHAHAL Room #: 352-P [facility] IN M.R.#: [id number] Admission: 03/20/20 Attend Phys: Donnie Weston Discharge: Date of : [birth year] Report #: [id number] GENERAL: He is somewhat restless, at least moderately encephalopathic, can be redirected briefly, repeatedly states he can hear, appears acute on chronically ill, moderate to marked distress. VITAL SIGNS: Temperature 97.3, pulse 86, respirations 18, blood pressure 120/64. SKIN: Warm. Has no rashes. HEENT: Bilateral hearing in place. Has got a mask for oxygen. NECK: Supple. LUNGS: Scattered coarse breath sounds. HEART: Distant, regular. I do not appreciate any murmur. ABDOMEN: Soft, no apparent peritoneal signs. Does not appear to be tender. GENITOURINARY AND RECTAL: Deferred. LABORATORY DATA: Urinalysis showed hematuria without significant pyuria. Blood cultures sterile thus far. Initial lactic acid 2.8, repeat was 1.2, 1.0 respectively. Chest x-ray as described above, cardiomegaly, extensive interstitial nodular opacity throughout the entire right lung, left upper lobe and left lower lobe. ABGs, pH of 7.475, pCO2 of 24.9, pO2 175.6. CBC: White count 14.8, H and H 14.1 and 42.9, platelets of 171,000. Electrolytes: Sodium 131, potassium 4.6, chloride 99, bicarbonate is 25, anion gap of 7, BUN and creatinine 19 and 1.3, glucose of 98. Total bilirubin of 2.9, albumin of 2.5. Influenza antigen was negative. ASSESSMENT AND PLAN: Pneumonitis ____ recent hospitalization for COVID-19 infection, complicated by fairly significant severe illness, concerned about secondary bacterial infection as a complication likely in the setting of some underlying immune-driven pneumonitis and perhaps a component of acute respiratory distress syndrome. He remains quite tenuous, it is unclear if he has had this issue with his hearing prior to this. Certainly if complications with coronavirus are seemingly expanding ____ post-neurological issues, see how he does over the next 48-72 hours. We will await results. Continue supportive measures. <ELECTRONICALLY SIGNED> By: Ciro Arvizu MD 03/23/20 0826 [id number] Ciro Arvizu MD /nt
--- NOTE | 2020-03-23 14:08 | NUR ---
SW reviewed chart and spoke with nursing and attending physician. Pt remains in Enhanced Isolation due to COVID-19. Pt is in restraints due to pulling at lines. Pt is afebrile and on 4L of O2. Pt is on IV abx. No weekend discharge planned. Pt will need therapy evals ordered when he is able to participate. VARUN is following to assist as needed with discharge planning.
[2020-03-23 15:27] VITALS: BP 111/56
--- NOTE | 2020-03-23 18:30 | NUR ---
PT ASSESSED AT START OF SHIFT. PT ALERT AND SOMEWHAT CONFUSED. HOLLAR OUT AT TIMES. RESPIRATIONS LABORED WHEN EXERTING HINSELF IN THE BED. SPEECH REEVALED HIM AND PT EATING PUREED DIET AND HONEY THK LIQUIDS. MEDS CRUSHED. URINE PINK TINGED IN ROQUE FROM PULLING. GOOD OUTPUT. HAD BM ON BEDPAN. UPDATED SON THIS AFTERNOON.
[2020-03-23 19:27] VITALS: BP 116/56
[2020-03-24 04:06] VITALS: BP 96/55
--- NOTE | 2020-03-24 06:00 | NUR ---
Pt. was yelling out constantly at the first part of the shift. He would kick his legs up in the air and try to wiggle hismself out of his wrist restraints. Able to to remove o2 saturation probe off his finger and oxygen canula somehow. He has been very restless. NET APPLICATION ARCHITECT was called and orders given for one time haldol im. It was given (see emar) with relief, but this am pt. starting to yell out intermittently. His bed alarm is on. Pt. very confused and unable to reorient.
[2020-03-24 07:37] VITALS: BP 120/70
[2020-03-24 11:59] VITALS: BP 85/45
[2020-03-24 16:05] VITALS: BP 101/54
--- NOTE | 2020-03-24 18:07 | NUR ---
ASSUMED CARE PT SHIFT CHANGE.ASSESSMENT CHARTED.MEDS GIVEN PER JUL. PT ALERT, ORIENTED TO SELF. CONFUSED. RESTRAINTS REMAIN IN PLACE PT CONTINUES TO TRY AND PULL AT MEDICAL DEVICES. PT TOLERATED MEALS WELL. O2 SATS WNL ON 3-4LO2 UOP ADEQUATE. INCONT BOWEL. PT REPOSITIONED SEVERAL TIMES THROUGHOUT SHIFT. PT YELLS OUT WITH NEEDS. FAMILY UPDATED ON CARE. PT CURRENTLY LAYING IN BED, CALM, IN NO APPARENT DISTRESS.CONTINUING TO MONITOR AND FOLLOW POC. WILL PASS ON REPORT TO ALIS BRO.
[2020-03-24 20:01] VITALS: BP 130/71
[2020-03-25 05:27] LABS: HEMATOCRIT 34.2 % (42.0-52.0); HEMOGLOBIN 11.2 gm/dL (14.0-18.0); MCH 32.6 pg (26.0-34.0); MCHC 32.8 g/dL (28.0-37.0); MCV 99.6 fL (80.0-100.0); RBC 3.43 mil/uL (4.50-6.00); RDW 19.9 % (10.5-14.5); WBC 13.8 thou/uL (4.0-11.0)
[2020-03-25 05:35] LABS: CALCIUM 7.9 mg/dL (8.5-10.1); CREATININE 0.9 mg/dL (0.7-1.3); PHOSPHORUS 1.8 mg/dL (2.5-4.9); POTASSIUM 3.6 mmol/L (3.5-5.1)
--- NOTE | 2020-03-25 07:41 | NUR ---
PT MAKING POOR PROGRESS TOWARDS GOALS. PT VERY TETLIN. UNABLE TO DETERMINE IF PT CAN HEAR ANYTHING SAID TO HIM EVEN WITH HIS HEARING AIDES IN PLACE. SPOT CHECKING O2 SAT PT IS FREQUENTLY RESTLESS. THIS AM, PT NOTED TO HAVE INCREASE IN THE AMOUNT OF RESTLESSNESS. SPOT CHECK O2 SAT 94-95% WITH OXYGEN AT 6L PER NC. UNABLE TO REDIRECT PT. REPOSITIONING DONE FREQUENTLY LAST NIGHT PT IS PULLED UP IN BED TO MAXIMIZE COMFORT AND BREATING ABILITY. THIS AM, MUCH MORE USE OF ACCESSOR MUSCLES TO BREATH. ORDER RECEIVED FOR HALDOL IN EFFORT TO ASSIST PT TO CALM AND REST.
[2020-03-25 08:02] LABS: BE(vivo) 3.3 mmol/L (-2 to +3); HCO3 27.3 mmol/L (22.0-26.0); PCO2 39.3 mmHg (35.0-45.0); pH 7.459 (7.360-7.450); sO2 86.5 % (92.0-98.0)
[2020-03-25 08:03] LABS: PO2 48.7 mmHg (80.0-100.0)
[2020-03-25 08:11] VITALS: BP 108/54
--- NOTE | 2020-03-25 14:20 | NUR ---
ASSUMED CARE OF PT AT 0700. PT CONFUSED, RESTLESS AND AGITATED. CONSTANTLY TRYING TO REMOVE OXYGEN. NOW ON OPTIFLOW. RESTLESS IN BED - PHYSICIAN AWARE. FAMILY REQUESTING TO TRANSFER TO - FUR STRETCHER NOTIFIED. NO PROGRESS TOWARD POC GOALS AT THIS TIME.
--- NOTE | 2020-03-25 14:53 | NUR ---
BIPAP ALARM HEARD AT APPROX 1430. PT HAD PULLED MASK LONG-TERM OFF FACE. MINIMAL RESPONSIVE AT THIS TIME, WITH PULSE. PT BECAME LESS AND LESS RESPONSIVE, WITH THREADY PULSE. CODE CALLED. NOW PULSELESS. NO CHEST COMPRESSIONS PER ORDER. TIME OF PRONOUNCED BY PHYSICIAN AT 1445.
[2020-03-25 15:20] VITALS: BP 117/76
[2020-03-25 19:50] VITALS: BP 117/64
--- NOTE | 2020-03-26 02:02 | NUR ---
ASSESSED AT START OF SHIFT. PT IN BED RESTLESS AND YELLING OUT. RESTRAINT INTACT AND Q2 ASSESSMENT DONE. CALLED ONCALL AND ORDERS ACKNOWLEGDE. HALDOL AND OLANAZAPINE GIVEN TO HELP CALM PT. PT ON OPTIFLOW 55L AND O2 SATS 85-91%. PT NPO FOR RISK OF ASPIRATION. MOUTH SWABS AND ORAL CARE PROVIDED. FOLLEY INTACT. BSG CHECKED. ISOLATION MAINTAINED. PT MOVES HEAD AROUND TRIES TO REMOVED O2. SECURED WITH TAPE. FALL PREC IN PLACE, FREQ ROUNDING DONE WILL CONT TO MONITOR.
[2020-03-26 03:00] VITALS: BP 131/50
[2020-03-26 04:53] LABS: HEMATOCRIT 35.5 % (42.0-52.0); HEMOGLOBIN 11.5 gm/dL (14.0-18.0); MCH 32.4 pg (26.0-34.0); MCHC 32.4 g/dL (28.0-37.0); MCV 99.9 fL (80.0-100.0); RBC 3.56 mil/uL (4.50-6.00); RDW 20.3 % (10.5-14.5); WBC 13.5 thou/uL (4.0-11.0)
[2020-03-26 05:00] LABS: CALCIUM 8.2 mg/dL (8.5-10.1); CREATININE 0.8 mg/dL (0.7-1.3); POTASSIUM 3.5 mmol/L (3.5-5.1)
--- NOTE | 2020-03-26 13:36 | NUR ---
VARUN reviewed chart and spoke with nursing and attending physician. Pt remains in Enhanced Isolation due to COVID-19. Pt is afebrile and requiring optiflow. Pt is on IV abx and IV steroids. Pt is in restraints due to pulling at lines and O2. Per nursing and attendign physician, pt's family has requested transfer to [facility]. VARUN spoke with pt's son, Kevin, via phone to discuss transfer and process of acceptance at . Pt must be accepted by a physician. Pt's son verbalized understanding. Pt's son states he has spoken with pt's insurance regarding transfer. VARUN placed call to [facility] transfer center and spoke with Dom. VARUN faxed requested info to the transfer center and provided contact info for attending physician. VARUN received call back from Dom at the transfer center stating they are closed to outside transfers at this time, as they are at capacity. VARUN updated attending physician. VARUN is following to assist as needed with discharge planning.
--- NOTE | 2020-03-26 13:37 | NUR ---
ASSUMED CARE AT 1335 FROM NURSE ARNOLD.
[2020-03-26 14:52] LABS: BE(vivo) 2.8 mmol/L (-2 to +3); HCO3 26.7 mmol/L (22.0-26.0); PCO2 38.5 mmHg (35.0-45.0); pH 7.459 (7.360-7.450); sO2 90.7 % (92.0-98.0)
--- NOTE | 2020-03-26 15:51 | NUR ---
PT HAS SCATTERED BRUISING AND SMALL HEALING SCABS TO BILAT LEGS AND FEET. PT HAS AREA ON RIGHT TOP THIGH THAT APPEARS TO BE RED IN COLOR, NON BLANCHABLE, NON TENDER, NO WARMTH PRESENT.
[2020-03-26 15:56] VITALS: BP 147/76
--- NOTE | 2020-03-26 17:26 | NUR ---
PT HAS TRANSFER ORDER TO ICU PER DR. AMBRIZ. REPORT CALLED TO ADALI RINCON. PT TRANSPORTED TO ICU VIA BED WITH RN AND RT. PT BELONGINGS INCLUDING CLOTHES AND HEARING AIDS AND DENTURES TRANSFERRED WITH PT.
--- NOTE | 2020-03-26 17:59 | NUR ---
Spoke with son and PALMA Brown at [phone] and discussed plan of care and rare possibility of a transfer given current medical situation. Son understood and told him a new piano case and bench assembler will reach out to him tomorrow as his father has indeed been transferred to ICU bed 242. Son verbalized an understanding of above and I did give my name and number to call if he had further questions. CM to follow with son and PALMA Rosadoel at the number listed above.
[2020-03-26 18:53] LABS: HCO3 27.3 mmol/L (22.0-26.0); PCO2 51.1 mmHg (35.0-45.0); PO2 132.8 mmHg (80.0-100.0); pH 7.346 (7.360-7.450); sO2 98.5 % (92.0-98.0)
--- NOTE | 2020-03-26 22:47 | NUR ---
>>>1900 BEDSIDE SHIFT REPORT RECEIVED, CARE ASSUMED >>>2030 ASSESMENTS DONE DOCUMENTED. SEDATION VACATION NOT DONE, PT DOES NOT MEET CRITERIA, FI02 AT 100%. PT HAVING SINUS BRADYCARDIA, HR ON HIGH 30s. IS ASYMPTOMATIC. TENA HOT BALLER NOTIFIED, SEE NEW ORDERS.
[2020-03-27] VITALS (12 sets, daily range): BP systolic 85–148; BP diastolic 50–76
[2020-03-27 04:25] LABS: CALCIUM 7.9 mg/dL (8.5-10.1); CREATININE 1.1 mg/dL (0.7-1.3); POTASSIUM 3.1 mmol/L (3.5-5.1)
[2020-03-27 05:04] LABS: BE(vivo) 3.1 mmol/L (-2 to +3); HCO3 28.9 mmol/L (22.0-26.0); PCO2 49.2 mmHg (35.0-45.0); PO2 75.3 mmHg (80.0-100.0); pH 7.387 (7.360-7.450); sO2 94.8 % (92.0-98.0)
[2020-03-27 05:11] LABS: HEMATOCRIT 38.3 % (42.0-52.0); HEMOGLOBIN 12.1 gm/dL (14.0-18.0); MCH 32.1 pg (26.0-34.0); MCHC 31.6 g/dL (28.0-37.0); MCV 101.4 fL (80.0-100.0); RBC 3.78 mil/uL (4.50-6.00); RDW 20.4 % (10.5-14.5); WBC 24.3 thou/uL (4.0-11.0)
--- NOTE | 2020-03-27 07:12 | NUR ---
BPCI LETTER ISSUED TO PATIENT AND OR ADMISSION PACKET
--- NOTE | 2020-03-27 09:30 | NUR ---
If continued aggressive care with pt, recommend start enteral nutrition of vital high protein at goal of 65ml/hr. If no feeding pump available needs 6 cartons per day.
--- NOTE | 2020-03-27 11:48 | NUR ---
Scott was transferred down to icu yesterday. he is intubated and has chest tube. [facility] is full at capacity and is still not open to transfers that are requested by family. cm broommaking supervisor and cm called son russell, no answer. left message. will cont following as needed for dc needs.
--- NOTE | 2020-03-27 18:30 | NUR ---
PT SON NANO CHOUDHURYJIA UPDATED ON PT CONDITIO. TITRATING DOWN FIO2 TO 70%. URINE OUTPUT MARGINAL. CONTINUE TO MONITOR.
[2020-03-28] VITALS (29 sets, daily range): BP systolic 77–161; BP diastolic 35–73
[2020-03-28 05:31] LABS: BE(vivo) 2.9 mmol/L (-2 to +3); HCO3 29.7 mmol/L (22.0-26.0); PCO2 55.5 mmHg (35.0-45.0); PO2 86.8 mmHg (80.0-100.0); pH 7.346 (7.360-7.450)
[2020-03-28 06:09] LABS: CALCIUM 7.6 mg/dL (8.5-10.1); CREATININE 0.9 mg/dL (0.7-1.3); HEMOGLOBIN 11.2 gm/dL (14.0-18.0); MCHC 32.7 g/dL (28.0-37.0); POTASSIUM 3.2 mmol/L (3.5-5.1)
[2020-03-28 06:12] LABS: HEMATOCRIT 34.1 % (42.0-52.0); MCH 32.8 pg (26.0-34.0); MCV 100.4 fL (80.0-100.0); RBC 3.4 mil/uL (4.50-6.00); WBC 24.5 thou/uL (4.0-11.0)
--- NOTE | 2020-03-28 07:20 | NUR ---
03/27/2020 37800 Bedside shift report received, care assumed. Assessments done at 1999 as documented, no sedation vacation, patient does not meet criteria. Exhibits restlessness and agitation. Sedation medication tiutrated per protocol. 03/28/2020 0330 Patient exhibiting low temp of 93.2, ott hagger used to bring temp up. Temperature rechecked at 0530, 97.6 recorded. Will continue to monitor.
--- NOTE | 2020-03-28 11:08 | NUR ---
chart review. he cont to requires vent, with nutritional support. cm spoke with transfer team,joseph [phone]. checked to see if they have capacity and if have any open beds. " no we are still closed to transfers by family request. we are at capacity"/joseph. will cont following as needed for dc needs.
--- NOTE | 2020-03-28 18:34 | NUR ---
ASSUMED CARE AT 0700. PATIENT'S SON UPDATED AND EDUCATED ON PATIENT CONDITION AND PLAN OF CARE. PATIENT SLOWLY PROGRESSING TOWARDS THE PLAN OF CARE.
[2020-03-29] VITALS (116 sets, daily range): BP systolic 68–181; BP diastolic 32–80
[2020-03-29 04:13] LABS: OBSERVED RETIC COUNT 1.72 % (0.6-2.6)
[2020-03-29 04:16] LABS: HEMATOCRIT 34.2 % (42.0-52.0); HEMOGLOBIN 10.8 gm/dL (14.0-18.0); MCHC 31.5 g/dL (28.0-37.0); MCV 101.6 fL (80.0-100.0); RBC 3.36 mil/uL (4.50-6.00); RDW 19.4 % (10.5-14.5); WBC 16.5 thou/uL (4.0-11.0)
[2020-03-29 04:26] LABS: ALBUMIN 1.5 g/dL (3.4-5.0); CALCIUM 7.1 mg/dL (8.5-10.1); CREATININE 0.8 mg/dL (0.7-1.3); DIRECT BILIRUBIN 0.6 mg/dL (<0.1-0.2); MAGNESIUM 2.2 mg/dL (1.8-2.4); POTASSIUM 4.1 mmol/L (3.5-5.1); TOTAL PROTEIN 4.7 g/dL (6.4-8.2)
[2020-03-29 05:02] LABS: FOLIC ACID 3.7 ng/mL (8.6-58.9)
--- NOTE | 2020-03-29 07:31 | NUR ---
PT'S BLOOD PRESSURE MAINTAINED WITH LEVO GTT. SEDATED ON PROPOFOL AND FENTANYL GTTS. SB/S ARRTHYMIA ON MONITOR WITH PAC AND PVC. VENT SETTINGS CHANGED THIS SHIFT; FIO2 DECREASED FROM 70% TO 55%. LEVO GTT TITRATED DOWN FROM 17 TO 10. 750 CC URINE OUTPUT OVERNIGHT. AFEBRILE.
[2020-03-29 15:34] LABS: PO2 79.1 mmHg (80.0-100.0); pH 7.274 (7.360-7.450); sO2 93.8 % (92.0-98.0)
[2020-03-29 16:39] LABS: APTT 32.5 Seconds (24.5-32.8); FIBRINOGEN 359.5 mg/dL (210-360); INR 1.1; PROTIME 11.7 Seconds (9.3-11.4)
--- NOTE | 2020-03-29 19:02 | NUR ---
SPOKE WITH PT'S SON NANO THIS AM AND UPDATED HIM. HE REQUESTED TO FACETIME PATIENT. 1300 FACETIME DONE WITH PT'S SON. PLATELET COUNT 18 THIS AM. CONSULT CALLED TO HEMATOLOGY. FONDAPARIMUX PLACED ON HOLD ORDERED BY DR SINGLETON. TUBE FEEDING STARTED THIS AFTERNOON AND TOLERATING WELL. WEANING LEVOPHED ABLE TO KEEP MAP >60.
--- NOTE | 2020-03-29 19:25 | NUR ---
SEDATION VACATION ATTEMPTED THIS AM 1000 BUT PT UNABLE TO TOLERATE: INCREASED RR AND CONSTANT COUGHING.
[2020-03-29 21:05] LABS: HEMOGLOBIN 10.7 g/dL (13.0-17.7)
--- NOTE | 2020-03-29 21:57 | NUR ---
>>>1900 BEDSIDE SHIFT REPORT RECEIVED, CARE ASSUMED. >>>2000 ASSESSMENTS DOCUMENTED, PT DID NOT TOLERATE SEDATION VACATION. BECAME RESTLESS AND TACHYPNEIC. CONTINUES WITH VENT SETTINGS RECORDED WITH FIO2 AT 60%. LEVOPHED DRIP TITRATED FOR BP MANAGEMENT. WILL CONTINUE TO MONITOR.
[2020-03-30] VITALS (71 sets, daily range): BP systolic 67–176; BP diastolic 28–98
[2020-03-30 05:52] LABS: HEMATOCRIT 36.4 % (42.0-52.0); HEMOGLOBIN 11.6 gm/dL (14.0-18.0); MCH 32.5 pg (26.0-34.0); MCHC 31.8 g/dL (28.0-37.0); MCV 101.9 fL (80.0-100.0); RBC 3.57 mil/uL (4.50-6.00); RDW 19.2 % (10.5-14.5); WBC 14.1 thou/uL (4.0-11.0)
[2020-03-30 05:53] LABS: CALCIUM 7.3 mg/dL (8.5-10.1); CREATININE 0.7 mg/dL (0.7-1.3); MAGNESIUM 2.3 mg/dL (1.8-2.4); POTASSIUM 3.5 mmol/L (3.5-5.1)
--- NOTE | 2020-03-30 12:02 | NUR ---
chart review. did not see if bedside staff checked for any beds for transfers yesterday. renate spoke with [facility] transfer center [phone]- spoke with ivan " not going to be able to but him on the wait list at [facility]"/ivan. cm faxed updates to . spoke with [facility] and not taking transferees from family request rt high capacity. renate notified son russell and will cont following as needed for dc needs. alina remain on vent, with nutritional per ku unable to accept, rt high capacity. call to check over weekend for transfer [phone] call [facility] to check over weekend for transfer [phone]
--- NOTE | 2020-03-30 15:45 | NUR ---
Upon initial assessment, patient noted to have agonal breaths under the set vent rate. SBP in the 80's despite the Levophed being at 25 mcgs/min. Decreasing propofol rather than going up on Levo. Propofol started at 60 mcgs/kg/min, now at 20. No change in neuro status. Patient not arousing as expected. Heart rate and rhythm continue to be sinus but irregular and at times increasing rate to a wide ventricular rhythm briefly. Infection Control Specialist changed tube feeds to Vital HP @ 50ml/hr goal rate while also getting the propofol and dextrose IVF. Continues to make U/O. Chest tube stable. Spoke with patient's son, Kevin at length regarding patient current clinical status and plan of care. Dr. Vo spoke with him as well. See documentation on interventions for assessment details.
[2020-03-31] VITALS (36 sets, daily range): BP systolic 79–145; BP diastolic 25–84
--- NOTE | 2020-03-31 04:20 | NUR ---
Assumed care at 1900, assessments done as documented, pt noted having labored breathing. Scrotal edema 2+ noted. Propofol decreased to 5. Pt tolerating sedation. Pt not following commnads. Sedation vacation not done due to patient on high FIO2 of 65 and not following commands. Restraints off. Propofol drip stopped at 0157, fentanyl titrated per protocol. BP improving with MAP> 65. Lephoved titrated as documented. At 0400, pt started desating to low 80s. Respiratory therapist present. Suctioning done as pt tolerated. O2 still staying on low 80s. FI02 increased to 100%. Pt tolerating, VS stable. Will continue to monitor.
[2020-03-31 05:17] LABS: HEMOGLOBIN 10.8 gm/dL (14.0-18.0); MCHC 32.6 g/dL (28.0-37.0); RBC 3.3 mil/uL (4.50-6.00)
[2020-03-31 05:18] LABS: HEMATOCRIT 33.3 % (42.0-52.0); MCH 32.9 pg (26.0-34.0); MCV 101.1 fL (80.0-100.0); RDW 18.7 % (10.5-14.5); WBC 8.4 thou/uL (4.0-11.0)
[2020-03-31 05:22] LABS: CALCIUM 7.3 mg/dL (8.5-10.1); CREATININE 1.2 mg/dL (0.7-1.3); MAGNESIUM 2.1 mg/dL (1.8-2.4); POTASSIUM 4.4 mmol/L (3.5-5.1)
[2020-03-31 12:36] LABS: BE(vivo) -0.8 mmol/L (-2 to +3); HCO3 27.8 mmol/L (22.0-26.0); sO2 89.9 % (92.0-98.0)
[2020-03-31 12:37] LABS: PCO2 65.7 mmHg (35.0-45.0); pH 7.245 (7.360-7.450)
--- NOTE | 2020-03-31 19:35 | NUR ---
Spoke with son and daughter today by phone. They were updated on patient condition and asked appropriate questions. They did not mention changing the patients code status, continues to be no code. Platelets 13 and bleeding noted in mouth and ett. FIO2 100%. No cpap trial today
[2020-04-01] VITALS (20 sets, daily range): BP systolic 114–171; BP diastolic 39–74
[2020-04-01 04:44] LABS: WBC 5.7 thou/uL (4.0-11.0)
[2020-04-01 04:46] LABS: HEMATOCRIT 33.5 % (42.0-52.0); MCH 33.2 pg (26.0-34.0); MCHC 32.9 g/dL (28.0-37.0); MCV 100.7 fL (80.0-100.0); RBC 3.32 mil/uL (4.50-6.00); RDW 19.3 % (10.5-14.5)
[2020-04-01 04:53] LABS: CALCIUM 7.5 mg/dL (8.5-10.1); CREATININE 1.4 mg/dL (0.7-1.3); MAGNESIUM 2.1 mg/dL (1.8-2.4); POTASSIUM 4.7 mmol/L (3.5-5.1)
[2020-04-01 05:01] LABS: BE(vivo) -0.5 mmol/L (-2 to +3); HCO3 28.3 mmol/L (22.0-26.0); PO2 71.2 mmHg (80.0-100.0); sO2 90.8 % (92.0-98.0)
[2020-04-01 05:02] LABS: PCO2 68.2 mmHg (35.0-45.0); pH 7.236 (7.360-7.450)
--- NOTE | 2020-04-01 07:54 | NUR ---
ASSESSMENTS CHARTED, MEDS CHARTED GIVEN. PATIENT IN BED DURING SHIFT. AGONAL BREATHING CONTINUOUSLY DURING SHIFT. PROPOFOL, FENTANYL AND VERSED GIVEN THROUGHOUT SHIFT. FALL PRECAUTIONS IN PLACE DURING SHIFT. PATIENT DID NOT APPEAR TO BE IN ANY PAIN.
[2020-04-01 11:32] LABS: BE(vivo) -1.3 mmol/L (-2 to +3); HCO3 28.3 mmol/L (22.0-26.0); sO2 96.3 % (92.0-98.0)
[2020-04-01 11:33] LABS: PCO2 74.2 mmHg (35.0-45.0); pH 7.199 (7.360-7.450)
--- NOTE | 2020-04-01 19:42 | NUR ---
ASSESSMENTS AND INTERVENTIONS DOCCUMENTED. PATIENT REMAINS INTUBATED AND SEDATED. MORPHINE GTT INTIATED DUE TO AGANOL BREATHING PER DR. AMRBIZ. AGONOL BREATHING RESOLVED THROUHG OUT SHIFT. VASO STARTED DUE TO HYPOTENSION. PATIENT NOT PROGRESSING TOWARDS GOALS AT THIS TIME EVIDENCE BY NOT FOLLOWING COMMANDS AND CURRENT STATUS.
[2020-04-02] VITALS (72 sets, daily range): BP systolic 85–143; BP diastolic 38–59
--- NOTE | 2020-04-02 04:49 | NUR ---
Pt remains sedated/intubated, no eye opeing, only response seen is when he clamps his mouth closed with oral cares, min/no cough or gag, pupils are sluggish. Morphine drip started for agonal breathing, resp are nonlabored, sats are 95% and above on 100% FiO2, lungs are coarse/diminished. Rt lateral chest tube dressing is intact, serous drainage noted. Kwan catheter is patent, reddened sediment noted. Family called for an update on his condition, seemed that they are discussing how to proceed, son expressed that he wasn't well even before hospitalization. Levophed has been titrated down, and vasopressin was stopped, (at 2320), when BP cuff placement was adjusted and adequate readings were obtained. Propofol was also stopped at 0330, with no appreciable change of condition noted. Will continue to monitor
[2020-04-02 05:48] LABS: HEMATOCRIT 34.9 % (42.0-52.0); HEMOGLOBIN 11.2 gm/dL (14.0-18.0); MCH 33.1 pg (26.0-34.0); MCHC 32.1 g/dL (28.0-37.0)
[2020-04-02 05:50] LABS: MCV 103.4 fL (80.0-100.0); RBC 3.38 mil/uL (4.50-6.00); RDW 19.1 % (10.5-14.5); WBC 4.8 thou/uL (4.0-11.0)
[2020-04-02 06:00] LABS: CALCIUM 7.6 mg/dL (8.5-10.1); CREATININE 1.5 mg/dL (0.7-1.3); POTASSIUM 5.5 mmol/L (3.5-5.1)
--- NOTE | 2020-04-02 14:03 | NUR ---
chart review. he remains on vet, with nutritional support. cm visited with son russell via phone call. " still would like to send referral to and [facility] just in case have bed ok, we going to have family phone call kishore to talk about dad and how he is doing. thank you for calling"/russell. cm sent referral to [facility] and , both at capacity and didn't accept for transfer.
--- NOTE | 2020-04-02 18:24 | NUR ---
ASSUMED CARE AT 0700. SPOKE WITH PATIENT'S FAMILY FROM [phone] AND THEY WERE UPDATED AND EDUCATED ON PATIENT'S CONDITION AND PLAN OF CARE.
[2020-04-03] VITALS (88 sets, daily range): BP systolic 88–148; BP diastolic 40–69
[2020-04-03 03:47] LABS: HEMOGLOBIN 10.9 gm/dL (14.0-18.0)
[2020-04-03 03:51] LABS: HEMATOCRIT 34.2 % (42.0-52.0); MCH 32.6 pg (26.0-34.0); MCHC 31.8 g/dL (28.0-37.0); MCV 102.6 fL (80.0-100.0); RBC 3.33 mil/uL (4.50-6.00); RDW 18.6 % (10.5-14.5); WBC 7.2 thou/uL (4.0-11.0)
[2020-04-03 03:56] LABS: ALBUMIN 1.3 g/dL (3.4-5.0); CALCIUM 7.3 mg/dL (8.5-10.1)
[2020-04-03 04:08] LABS: PLATELET COUNT 19 thou/uL (150-400)
[2020-04-03 04:10] LABS: POTASSIUM 6.6 mmol/L (3.5-5.1)
[2020-04-03 05:12] LABS: BE(vivo) -6.5 mmol/L (-2 to +3); HCO3 24.2 mmol/L (22.0-26.0); PO2 78.8 mmHg (80.0-100.0); sO2 90.3 % (92.0-98.0)
[2020-04-03 06:59] LABS: ABSOLUTE NEUTROPHILS 5.5 thou/uL (1.4-8.2); ATYPICAL MONONUCLEARS 1 %; NUCLEATED RBCS 1 /100WBC
[2020-04-03 07:00] LABS: ANISOCYTOSIS 2+; MACROCYTES 1+; PLATELET ESTIMATE MARKEDLY DECREASED; POIKILOCYTOSIS 1+
--- NOTE | 2020-04-03 10:27 | NUR ---
spoke with joseph with transfer team, unable to take transfers requested by families and would be getting the same tx at that [facility] is currently doing rt high capacity. cm spoke with andreea at [facility] faxed face sheet rt only keep until accepted or denied then new transfer has to be started again.
--- NOTE | 2020-04-03 14:32 | NUR ---
SON NANO CHAHAL UPDATED ON PT CONDITION. DR. ROGERS TALKED TO PT SON WELL.
[2020-04-03 15:19] LABS: CALCIUM 7.2 mg/dL (8.5-10.1)
[2020-04-03 15:30] LABS: POTASSIUM 6.5 mmol/L (3.5-5.1)
[2020-04-04] VITALS (65 sets, daily range): BP systolic 111–145; BP diastolic 37–56
[2020-04-04 03:56] LABS: BE(vivo) -1.3 mmol/L (-2 to +3); PCO2 64.6 mmHg (35.0-45.0); PO2 77.5 mmHg (80.0-100.0); sO2 92.8 % (92.0-98.0)
[2020-04-04 03:57] LABS: pH 7.239 (7.360-7.450)
--- NOTE | 2020-04-04 05:42 | NUR ---
NO SIGNIFICANT EVENTS DURING THE NIGHT. PT REMAINS LIGHTLY SEDATED WITH FENTANYL FOR VENT MANAGMENT. SPO2 >92% ON VENT WITH 100% FIO2. ORAL CARE PROVIDED. DRESSING CHANGED TO LEFT LATERAL CHEST TUBE IT WAS SATURATED WITH SEROUS DRAINAGE. CHEST TUBE PATENT AND DRAINING SEROUS FLUID. LEVOPHED DRIP FOR BP SUPPORT. AFEBRILE. TF VIA OGT. TF RATE INCREASED FROM 20 TO 30ML/HR PT IS TOLERATING WELL WITH RESIDUALS <150ML. NOT PROGRESSING WELL TOWARD POC GOALS. WILL GIVE REPORT TO ONCOMING NURSE.
[2020-04-04 05:48] LABS: HEMOGLOBIN 9.7 gm/dL (14.0-18.0); WBC 11.1 thou/uL (4.0-11.0)
[2020-04-04 05:50] LABS: HEMATOCRIT 30.2 % (42.0-52.0); MCH 32.4 pg (26.0-34.0); MCHC 32.1 g/dL (28.0-37.0); PLATELET COUNT 20 thou/uL (150-400); RBC 2.99 mil/uL (4.50-6.00); RDW 19.1 % (10.5-14.5)
[2020-04-04 06:13] LABS: ALBUMIN 1.3 g/dL (3.4-5.0); CALCIUM 7.5 mg/dL (8.5-10.1); TOTAL PROTEIN 4.5 g/dL (6.4-8.2)
[2020-04-04 06:15] LABS: POTASSIUM 6.2 mmol/L (3.5-5.1)
--- NOTE | 2020-04-04 06:30 | NUR ---
0615 - NOTIFIED DR CASAS OF ABG RESULTS AND CRITICALLY HIGH POTASSIUM (6.2). HE STATED HE WILL PUT IN ORDERS WHEN HE ROUNDS ON PATIENTS.
[2020-04-04 10:44] LABS: ABSOLUTE NEUTROPHILS 8.4 thou/uL (1.4-8.2); NUCLEATED RBCS 2 /100WBC
[2020-04-04 10:46] LABS: ANISOCYTOSIS 1+; LARGE PLATELETS RARE; OVALOCYTES FEW; PLATELET ESTIMATE MARKEDLY DECREASED; POIKILOCYTOSIS 1+
--- NOTE | 2020-04-04 12:50 | NUR ---
ASSUMED CARE OF PATIENT AT 0600. NO VENTILATOR CHANGES WERE MADE WHILE ON MY SHIFT. A HIGH DOSE ALBUTEROL TREATMENT WAS ORDERED. I HAVE CALLED PHARMACY TWICE AND THEY WILL SEND IT OVER. AT THIS TIME THE PATIENT IS SHOWING NO SIGNS OF DISTRESS.
--- NOTE | 2020-04-04 13:45 | NUR ---
faxed referral to [facility] and transfer team. both hospital still at high capacity and will see if able to take a family requested transfer or if have any beds open?
--- NOTE | 2020-04-04 17:11 | NUR ---
PT HAS L LATERAL CHEST TUBE IN PLACE. CHEST TUBE HAS SMALL AIR LEAK AND TIDALING AT TIMES WITH DIFFERENT PT POSITIONS. CURRENTLY NO AIR LEAK OR TIDALING PRESENT.
--- NOTE | 2020-04-04 17:50 | NUR ---
PT IS PROGRESSING TOWARDS NUTRITIONAL GOALS. MEDIA SERVICES SPECIALIST CHANGED TUBE FEEDING TO NEPRO THIS AM WITH SAME GOAL OF 50CC/HR. AT BEGINNING OF SHIFT PT WAS AT 30CC/HR AND IS CURRENTLY AT GOAL OF 50CC/HR WITH LAST 1600 RESIDUAL CHECK OF 30CC. PT REMAINS ON THE VENTILATOR AT 100% FIO2 AND IS NOT PROGRESSING TOWARDS RESPIRATORY GOALS. PT HAD CH K LEVEL THIS AM WHERE MEDS WERE ORDERED BY PHYSICIAN. AT 1207 ACCUCHECK PT'S BLOOD GLUCOSE LEVEL WAS 62 AND PT REQUIRED D10 100 CC TO BE GIVEN IV. PT WAS RECHECKED AND BLOOD GLUCOSE LEVEL WAS 105 AFTER THE D10 WAS GIVEN.
[2020-04-05] VITALS (59 sets, daily range): BP systolic 79–132; BP diastolic 36–55
[2020-04-05 05:34] LABS: BE(vivo) -5.7 mmol/L (-2 to +3); PCO2 62.3 mmHg (35.0-45.0); PO2 77.6 mmHg (80.0-100.0); sO2 91.9 % (92.0-98.0)
[2020-04-05 05:35] LABS: pH 7.185 (7.360-7.450)
[2020-04-05 06:46] LABS: EOSINOPHILS 0.4 % (0.0-3.0); LYMPHOCYTES 1.4 % (24.0-44.0)
[2020-04-05 06:48] LABS: ABSOLUTE NEUTROPHILS 12.5 thou/uL (1.4-8.2); BASOPHILS 0.1 % (0.0-2.0); HEMATOCRIT 28.2 % (42.0-52.0); HEMOGLOBIN 9.2 gm/dL (14.0-18.0); MCH 32.6 pg (26.0-34.0); MCHC 32.5 g/dL (28.0-37.0); MCV 100.3 fL (80.0-100.0); MONOCYTES 9.8 % (1.0-8.0); PLATELET COUNT 20 thou/uL (150-400); POLYS 88.3 % (36.0-66.0); RBC 2.81 mil/uL (4.50-6.00); RDW 18.6 % (10.5-14.5); WBC 14.1 thou/uL (4.0-11.0)
[2020-04-05 07:08] LABS: ALBUMIN 1.2 g/dL (3.4-5.0); CALCIUM 7.6 mg/dL (8.5-10.1); CREATININE 2.2 mg/dL (0.7-1.3); TOTAL PROTEIN 4.4 g/dL (6.4-8.2)
[2020-04-05 07:21] LABS: POTASSIUM 6.3 mmol/L (3.5-5.1)
[2020-04-05 09:16] LABS: ANISOCYTOSIS 2+; OVALOCYTES FEW
--- NOTE | 2020-04-05 11:18 | NUR ---
ON THE VENT, LIGHTLY SEDATED. VITALS STABLE, ON LEVO FOR BP SUPPORT. TOLERATING TUBEFEEDING PER OGT. PATIENT SATS IN THE 80'S DESPITE BEING ON FIO2 AT 100%. NOT PROGRESSING TOWARDS POC GOALS.
--- NOTE | 2020-04-05 15:35 | HC ---
[facility] [place] [address] [place] [address] CONSULTATION Name: SYLVIA CHAHAL Room #: 242-P ADM IN M.R.#: [id number] Admission: 03/20/20 Attend Phys: Donnie Weston Discharge: Date of : [birth year] Report #: [id number] THIS REPORT FOR: cc: Margret Salazar MD, Paula V. MD Elia, Manana MD ~ DATE OF SERVICE: 04/02/2020 REQUESTING PHYSICIAN: Dr. Weston. REASON FOR CONSULTATION: Thrombocytopenia. HISTORY OF PRESENT ILLNESS: The patient is an 89-year-old man who was admitted to the hospital with COVID pneumonia in early March. He spent 2 weeks in the hospital. He was discharged home after refusing to go to a facility on 03/17. He was still requiring supplemental oxygen when he was released from the hospital. His condition gradually worsened at home. His mental status worsened, hypoxemia worsened, so he was admitted to the hospital again. He is treated for bacterial pneumonitis now with antibiotics. The patient was started with vancomycin, cefepime. Currently, he is on ____, vancomycin. He had mild thrombocytopenia on admission. During hospital stay, his thrombocytopenia got worse, Lovenox was discontinued. Heparin-induced antibody panel pending. Hematology consult is requested. The patient is intubated, sedated in the Intensive Care Unit. He does not have signs of bleeding or bruising. History was obtained by reviewing the chart and discussing case with nurse. PHYSICAL EXAMINATION: VITAL SIGNS: Blood pressure 106/52, temperature 99.0. SKIN: No large bruises. NEUROLOGIC: Mental status: Sedated, appears chronically ill. LABORATORY DATA: White count 4.8, hemoglobin 12.1, platelets 16. PT 11.7, INR 1.1. ASSESSMENT AND PLAN: Thrombocytopenia, most likely secondary to increased consumption, decreased production due to sepsis. Antibiotics. Heparin-induced antibody panel pending. According to nurse, it is negative, I cannot find the report. Agree to change Lovenox to alternative anticoagulation when necessary. Currently, the patient does not need any anticoagulation due to the degree of thrombocytopenia. Recommend to continue to monitor platelet count. Transfuse platelets as necessary. [facility] [address] [place] [address] CONSULTATION Name: SYLVIA CHAHAL Room #: 242-P [facility] IN .R.#: [id number] Admission: 03/20/20 Attend Phys: Donnie Weston Discharge: Date of : [birth year] Report #: [id number] Thank you very much for allowing us to participate in the care of this patient. We will follow the patient with you. <ELECTRONICALLY SIGNED> By: Winsome Zimmerman MD 04/05/20 1535 [id number] Winsome Zimmerman MD /nt
--- NOTE | 2020-04-05 16:27 | NUR ---
cm spoke with son russell via phone call. renate passed on that [facility] and transfer team has not called cm back. " ok thank you, that is fine just wait till call you back. am still waiting on md to see if medication is helping his kidney"/son russell. renate passed on information to hospitalist.
[2020-04-06] VITALS (64 sets, daily range): BP systolic 83–149; BP diastolic 37–84
[2020-04-06 06:36] LABS: ALBUMIN 1.1 g/dL (3.4-5.0); CALCIUM 7.6 mg/dL (8.5-10.1); CREATININE 2.5 mg/dL (0.7-1.3); PHOSPHORUS 6.9 mg/dL (2.5-4.9)
[2020-04-06 06:39] LABS: POTASSIUM 6.4 mmol/L (3.5-5.1)
--- NOTE | 2020-04-06 13:42 | NUR ---
PT'S DAUGHTER CALLED AND HAD PT CODE. DAUGHTER ASKED QUESTIONS OF WHAT PT'S URINE OUTPUT IS THIS SHIFT SO FAR AND WHAT ARE PT'S VITAL SIGNS. DAUGHTER ALSO ASKED IF PT WAS ON ANY ANTIBIOTICS. DAUGHTER THEN HAD A PHONE CALL ON HER OTHER LINE AND STATED IF SHE HAS ANY MORE QUESTIONS SHE WILL CALL NURSE BACK BUT THAT SHE NEEDED TO ANSWER HER OTHER LINE IN CASE IT IS A DOCTOR CALLING HER.
--- NOTE | 2020-04-06 14:04 | NUR ---
chart review. alina cont to require vent support, chest tube and nutritional support. unable to see pt rt covid + and conserving on ppe. cm visited with son russell via phone call " thank you, just speaking with nurse, just waiting for dr to call. would still like see if have bed opens at [facility] or . never hurts to try. will talk next week. thank you"/[facility]. cm sent family requested referral to and [facility]. will cont following as needed for dc needs.
--- NOTE | 2020-04-06 19:42 | NUR ---
PT REMAINED VENTED WITH FIO2 OF 100% AND PULSE OX BETWEEN 87-92% PT IS NOT PROGRESSING TOWARDS GOALS. EVERY OTHER BREATH APPEARS TO BE AGONAL. PT DOES NOT TOLERATE TURNS. PT WILL DESAT TO LOW 80'S AND IT TAKES AT TIME MORE THAN 1 HOUR TO GET BACK TO 88-91 % SPO2. PT IS TOLERATING TUBE FEEDING AT GOAL RATE OF 50 AND HAD SMALL LIQUID BROWN BOWEL MOVEMENT TODAY.
[2020-04-07] VITALS (64 sets, daily range): BP systolic 69–123; BP diastolic 31–62
[2020-04-07 04:04] LABS: CALCIUM 7.7 mg/dL (8.5-10.1); CREATININE 2.7 mg/dL (0.7-1.3)
[2020-04-07 04:08] LABS: POTASSIUM 6.4 mmol/L (3.5-5.1)
--- NOTE | 2020-04-07 18:42 | NUR ---
REMAINS ON VENT 85-89% O2 SAT, VS CHARTED, BG AT 1800 AT 53, AND MEDICATED ORDERD. SPOKE WITH SON UPDATED AND WILL CONTINUE WITH POC.
[2020-04-07 21:23] LABS: BE(vivo) -15.7 mmol/L (-2 to +3); HCO3 14.6 mmol/L (22.0-26.0); PCO2 57.3 mmHg (35.0-45.0); sO2 40.8 % (92.0-98.0)
[2020-04-07 21:24] LABS: PO2 33.6 mmHg (80.0-100.0); pH 7.025 (7.360-7.450)
[2020-04-07 21:45] LABS: BE(vivo) -13.9 mmol/L (-2 to +3); HCO3 17.5 mmol/L (22.0-26.0); sO2 30.2 % (92.0-98.0)
[2020-04-07 21:46] LABS: PCO2 74.1 mmHg (35.0-45.0); PO2 28.9 mmHg (80.0-100.0)
[2020-04-07 21:47] LABS: pH 6.991 (7.360-7.450)
[2020-04-08] VITALS (31 sets, daily range): BP systolic 69–134; BP diastolic 22–52
--- NOTE | 2020-04-08 04:38 | NUR ---
1899 - REPORT RECEIVED FROM ADALI SAHA. AT THAT TIME PTS BLOOD PRESSURE WAS 76/36 AND PT DESATING TO 82%. LEVOPHED TITRATED TO MAINTAIN MAP > 60. DR. CASAS NOTIFIED OF THE ABOVE. ORDERS RECEIVED FOR STAT ABG'S AND CHEST XRAY. CRITICAL ABG'S REPORTED TO DR. CASAS. REFER TO EMAR FOR ORDERS. 0037 - PT CONTINUES TO DESAT LOW 72%. GCS:3. [facility] NOTIFIED. REFERAL NUMBER: [id number].
[2020-04-08 06:37] LABS: HEMATOCRIT 25.5 % (42.0-52.0); HEMOGLOBIN 7.7 gm/dL (14.0-18.0); MCH 31.7 pg (26.0-34.0); PLATELET COUNT 52 thou/uL (150-400); RBC 2.42 mil/uL (4.50-6.00); RDW 19.9 % (10.5-14.5); WBC 29.7 thou/uL (4.0-11.0)
[2020-04-08 06:41] LABS: ALBUMIN 1.6 g/dL (3.4-5.0); CALCIUM 7.9 mg/dL (8.5-10.1); CREATININE 3.1 mg/dL (0.7-1.3); TOTAL PROTEIN 4.6 g/dL (6.4-8.2)
[2020-04-08 06:45] LABS: POTASSIUM 7.1 mmol/L (3.5-5.1)
[2020-04-08 06:47] LABS: MCV 105.5 fL (80.0-100.0)
--- NOTE | 2020-04-08 11:41 | NUR ---
DR LAWRENCE JUST INFORMED THIS RN THAT HE JUST SPOKE WITH FAMILY OF PT AND DPOA HAS AGREED TO PALLATATIVELY EXTUBATE PT TODAY. ORDER GIVEN TO ONLY CONTINUE PRESSORS AND FENTANYL AT THIS TIME NO OTHER MEDICATIONS.
[2020-04-08 13:34] LABS: ABSOLUTE NEUTROPHILS 24.1 thou/uL (1.4-8.2); CORRECTED WBC 26.8 thou/uL (4.0-11.0); NUCLEATED RBCS 11 /100WBC
[2020-04-08 13:35] LABS: ANISOCYTOSIS 2+; MACROCYTES 1+
[2020-04-08 13:36] LABS: POLYCHROMASIA OCCASIONAL
== END 2020-04-08 14:48 | DRG 870 ==
LOC: ER 11:58 → EROBS 22:15 → 3W 22:15 → ICU 03-26 16:55
PROVIDERS: Emergency Medicine; Hospitalist; Internal Medicine; Internal Medicine Hematology & Oncology; Internal Medicine Pulmonary Disease; Nurse Practitioner Family; Pediatrics; ADMIT Hospitalist; ATTEND Hospitalist
DX: A41.89 Other specified sepsis (principal); U07.1 COVID-19; J80 Acute respiratory distress syndrome; J12.89 Other viral pneumonia; R65.21 Severe sepsis with septic shock; J15.9 Unspecified bacterial pneumonia; E43 Unspecified severe protein-calorie malnutrition; G93.40 Encephalopathy, unspecified; J93.9 Pneumothorax, unspecified; I50.32 Chronic diastolic (congestive) heart failure; I95.9 Hypotension, unspecified; D69.6 Thrombocytopenia, unspecified; M06.9 Rheumatoid arthritis, unspecified; I25.10 Atherosclerotic heart disease of native coronary artery without angina pectoris; K21.9 Gastro-esophageal reflux disease without esophagitis; E78.5 Hyperlipidemia, unspecified; N40.0 Benign prostatic hyperplasia without lower urinary tract symptoms; E88.09 Other disorders of plasma-protein metabolism, not elsewhere classified; E78.00 Pure hypercholesterolemia, unspecified; I11.0 Hypertensive heart disease with heart failure; F03.90 Unspecified dementia, unspecified severity, without behavioral disturbance, psychotic disturbance, mood disturbance, and anxiety; E87.5 Hyperkalemia; Z51.5 Encounter for palliative care; Z66 Do not resuscitate; Z95.5 Presence of coronary angioplasty implant and graft; I25.2 Old myocardial infarction; Z79.82 Long term (current) use of aspirin; Z79.899 Other long term (current) drug therapy; Z88.5 Allergy status to narcotic agent; Z68.38 Body mass index [BMI] 38.0-38.9, adult
CPT/HCPCS: 10078; 10203; 10879; 27000